=== PATIENT | male | born 1955 | race Caucasian/White ===

== ENCOUNTER 2016-12-22 23:35 | Emergency (ER) | payer MEDICARE, MEDICAID ==
[~2016-12-22] VITALS: Ht 170.2 cm; Wt 76.0 kg
[~2016-12-22 23:35] MED LIST: ATOR20TA65 PO; BACL-141 PO; BACL20TA PO; DEXA4TAB PO; FOLI-43 PO; LAM25 PO; LEVE750T4 PO; LISI10TA5 PO; NITR100C11 PO; PHEN200C5 PO; SANDOSTATIN SQ; SM CALCIUM PO
[2016-12-23] MEDS ORDERED: LEVETIRACETAM 500MG PREMIX 100 ML IV ONE
[2016-12-23 00:33] LABS: CHLORIDE 104 mEq/L (98-107); INDEX HEMOLYSI 1 (1-3); INDEX ICTERIC 1 (1-4); INDEX LIPEMIC 1 (1-3)
[2016-12-23 00:41] LABS: ALANINE AMINOTRANSFERASE 37 IU/L (13-61); ALBUMIN 3.2 g/dL (3.4-5.0); ANION GAP 10; CALCIUM 8.4 mg/dL (8.5-10.1); CARBON DIOXIDE 29 mEq/L (21-32); PHENYTOIN 14.2 ug/mL (10-20); UREA NITROGEN BLOOD 8 mg/dL (7-21); eGFR > 60 mL/min (>60)
[2016-12-23 01:02] LABS: BASOPHILS % 0.2 % (0.0-2.0); EOSINOPHILS % 1.5 % (0.0-5.0); HEMATOCRIT. 43.4 % (42.0-52.0); HEMOGLOBIN. 14.4 g/dL (14.0-18.0); LYMPHOCYTES % 29.5 % (20.0-50.0); MEAN CORPUSCULAR HEMOGLOBIN 31.4 pg (28.0-32.0); MEAN CORPUSCULAR HGB CONC 33.3 g/dL (31.0-37.0); MEAN CORPUSCULAR VOLUME 94.5 fL (80.0-94.0); MEAN PLATELET VOLUME 7.9 fl (7.4-10.4); MONOCYTES % 9.7 % (2.0-8.0); NEUTROPHILS % 59.1 % (40.0-76.0); PLATELET 241 x1000/uL (130-400); RED CELL DISTRIBUTION WIDTH 14.9 % (11.6-14.6); WHITE BLOOD COUNT 8.5 x1000/uL (4.5-11.0)
[2016-12-23 01:15] LABS: PROTHROMBIN TIME 10.6 sec
[2016-12-23 01:49] LABS: CLARITY URINE CLEAR (CLEAR); COLOR URINE YELLOW (YELLOW); GLUCOSE URINE NEGATIVE (NEGATIVE); KETONES URINE NEGATIVE (NEGATIVE); LEUKOCYTE ESTERASE URINE 1+ (NEGATIVE); NITRITE URINE NEGATIVE (NEGATIVE); OCCULT BLOOD URINE NEGATIVE (NEGATIVE); PROTEIN URINE NEGATIVE (NEGATIVE); SPECIFIC GRAVITY URINE 1.006 (1.005-1.030); UROBILINOGEN URINE 0.2 E.U./dL (0.2-1.0)
[2016-12-23 02:08] LABS: BACTERIA URINE NONE SEEN; RBC URINE 0-2 /hpf (0-2); SQUAMOUS EPITHELIAL CELL URINE FEW /lpf (RARE/1+)
[2016-12-23 03:09] VITALS: BP 127/83
== END 2016-12-23 03:19 | disposition home or self-care (01) ==
LOC: ER 23:35
DX: G40.909 Epilepsy, unspecified, not intractable, without status epilepticus (principal); Z88.0 Allergy status to penicillin; Z79.1 Long term (current) use of non-steroidal anti-inflammatories (NSAID); Z79.899 Other long term (current) drug therapy
CPT/HCPCS: 36415; 70450; 71010; 80053; 80185; 81001; 85025; 85610; 93005; 96365; 99285; J1953

== ENCOUNTER 2017-01-27 04:11 | Emergency (ER) | payer MEDICARE, MEDICAID ==
[~2017-01-27] VITALS: Ht 167.6 cm; Wt 73.0 kg
[2017-01-27] MEDS ORDERED: ONDANSETRON HCL 4MG/2ML VIAL IV ONE (04:30)
[2017-01-27] MEDS ORDERED: MORPHINE SULFATE 4 MG/ML CPJ (NOT FOR IM USE) IV ONE ×2 (04:30→06:15)
[2017-01-27 05:05] LABS: BASOPHILS % 0.3 % (0.0-2.0); EOSINOPHILS % 0.1 % (0.0-5.0); HEMATOCRIT. 45.1 % (42.0-52.0); HEMOGLOBIN. 15.4 g/dL (14.0-18.0); LYMPHOCYTES % 8.8 % (20.0-50.0); MEAN CORPUSCULAR HEMOGLOBIN 31.8 pg (28.0-32.0); MEAN CORPUSCULAR VOLUME 93.5 fL (80.0-94.0); MEAN PLATELET VOLUME 8.9 fl (7.4-10.4); MONOCYTES % 7.7 % (2.0-8.0); NEUTROPHILS % 83.1 % (40.0-76.0); PLATELET 190 x1000/uL (130-400); RED BLOOD CELL COUNT 4.83 mill/uL (4.7-6.1); RED CELL DISTRIBUTION WIDTH 14.2 % (11.6-14.6)
[2017-01-27 05:11] LABS: CARBON DIOXIDE 28 mEq/L (21-32); CHLORIDE 98 mEq/L (98-107)
[2017-01-27 05:13] LABS: INR 1.6; PROTHROMBIN TIME 16.9 sec
[2017-01-27 06:10] LABS: COLOR URINE YELLOW (YELLOW)
[2017-01-27 06:11] LABS: CLARITY URINE CLOUDY (CLEAR); GLUCOSE URINE NEGATIVE (NEGATIVE); KETONES URINE TRACE (NEGATIVE); LEUKOCYTE ESTERASE URINE TRACE (NEGATIVE); NITRITE URINE NEGATIVE (NEGATIVE); OCCULT BLOOD URINE TRACE (NEGATIVE); PH URINE 8.5 (4.5-8.0); PROTEIN URINE NEGATIVE (NEGATIVE); SPECIFIC GRAVITY URINE 1.013 (1.005-1.030); UROBILINOGEN URINE 0.2 E.U./dL (0.2-1.0)
[2017-01-27] MEDS ORDERED: CLONIDINE 0.2MG TABLET PO NR (07:15)
[2017-01-27 08:18] VITALS: BP 161/107
[2017-01-27] MEDS ORDERED: ONDANSETRON 4MG ODT PO ONE (09:00)
== END 2017-01-27 09:02 | disposition home or self-care (01) ==
LOC: ER 04:13
DX: R10.13 Epigastric pain (principal); R11.2 Nausea with vomiting, unspecified; D49.6 Neoplasm of unspecified behavior of brain; Z88.0 Allergy status to penicillin
CPT/HCPCS: 36415; 71010; 76705; 80053; 81001; 83690; 85025; 85610; 96374; 96375; 96376; 99285; J2270; J2405; Q0162

== ENCOUNTER 2017-02-06 12:28 | Inpatient (IN) | payer MEDICARE, MEDICAID ==
[~2017-02-06] VITALS: Ht 167.6 cm; Wt 83.9 kg
[2017-02-06] MEDS ORDERED: DEXA4TAB PO (16:00)
[2017-02-06] MEDS ORDERED: POTA20TA12 PO (16:00)
[2017-02-06 16:22] LABS: INR 1.1; PARTIAL THROMBOPLASTIN TIME 27.4 sec (24.0-34.0)
[2017-02-06 16:26] LABS: HEMATOCRIT 38.4 % (42.0-52.0); HEMOGLOBIN 12.8 g/dL (14.0-18.0); MEAN CORPUSCULAR HEMOGLOBIN 31.1 pg (28.0-32.0); MEAN CORPUSCULAR VOLUME 93.6 fL (80.0-94.0); PLATELET 428 x1000/uL (130-400); RED BLOOD CELL COUNT 4.11 mill/uL (4.7-6.1); RED CELL DISTRIBUTION WIDTH 14.4 % (11.6-14.6)
[2017-02-06 16:39] LABS: CARBON DIOXIDE 33 mEq/L (21-32); CHLORIDE 102 mEq/L (98-107)
[2017-02-06] MEDS ORDERED: SODIUM CHLORIDE 0.9% 1,000 ML IV SCH (18:23)
[2017-02-06] MEDS ORDERED: IPRATROPIUM/ALBUTEROL 0.5-3(2.5)MG/3ML NEB INH PRN (18:30)
[2017-02-06] MEDS ORDERED: MAGNESIUM/ALUMINUM HYDROXIDE/SIMETHICONE 30ML UDC PO PRN (18:30)
[2017-02-06] MEDS ORDERED: ACETAMINOPHEN 650MG SUPP PR PRN (18:30)
[2017-02-06] MEDS ORDERED: HYDROMORPHONE HCL/PF 2MG/ML CPJ IV PRN (18:30)
[2017-02-06] MEDS ORDERED: LORAZEPAM 2MG/ML CPJ IV PRN (18:30)
[2017-02-06] MEDS ORDERED: DIATR MEGLU/DIATRIZOATE SOLN 30ML PO NR ×2 (18:30→19:45)
[2017-02-06] MEDS ORDERED: CLONIDINE 0.1MG TABLET PO PRN (18:30)
[2017-02-06] MEDS ORDERED: GUAIFENESIN 200MG/10ML SUGAR FREE UDC PO PRN (18:30)
[2017-02-06] MEDS ORDERED: ONDANSETRON HCL 4MG/2ML VIAL IV PRN (18:30)
[2017-02-06] MEDS ORDERED: LORAZEPAM 0.5MG TABLET PO PRN (18:30)
[2017-02-06] MEDS ORDERED: DOCUSATE SODIUM 100MG CAPSULE PO PRN (18:30)
[2017-02-06] MEDS ORDERED: ACETAMINOPHEN 325MG TABLET PO PRN (18:30)
[2017-02-06] MEDS ORDERED: DIPHENHYDRAMINE 50MG/ML VIAL IV PRN (18:30)
[2017-02-06 18:40] LABS: CLARITY URINE TURBID (CLEAR); COLOR URINE YELLOW (YELLOW); KETONES URINE NEGATIVE (NEGATIVE); LEUKOCYTE ESTERASE URINE 1+ (NEGATIVE); NITRITE URINE POSITIVE (NEGATIVE); OCCULT BLOOD URINE NEGATIVE (NEGATIVE); PROTEIN URINE NEGATIVE (NEGATIVE); SPECIFIC GRAVITY URINE 1.012 (1.005-1.030); UROBILINOGEN URINE 0.2 E.U./dL (0.2-1.0)
[2017-02-06] MEDS ORDERED: DEXTROSE 50% WATER 50ML SYRINGE IV PRN (18:45)
[2017-02-06 19:39] LABS: *AMPHETAMINES SCREEN URINE NEGATIVE (NEGATIVE); *BARBITURATES SCREEN URINE NEGATIVE (NEGATIVE); *BENZODIAZEPINES SCREEN URINE NEGATIVE (NEGATIVE); *COCAINE SCREEN URINE NEGATIVE (NEGATIVE); CANNABINOID URINE SCREEN NEGATIVE (NEGATIVE); METHADONE URINE SCREEN NEGATIVE (NEGATIVE); OPIATES URINE SCREEN NEGATIVE (NEGATIVE); PHENCYCLIDINE URINE SCREEN NEGATIVE (NEGATIVE)
[2017-02-06] MEDS: PHENYTOIN SODIUM EXTENDED 100MG CAPSULE PO SCH (20:57)
[2017-02-06] MEDS: LEVETIRACETAM 500MG TABLET PO SCH (20:57)
[2017-02-06] MEDS: LAMOTRIGINE 25MG TABLET PO SCH (20:58)
[2017-02-06] MEDS ORDERED: BLOOD SUGAR DIAGNOSTIC STRIP TEST SCH (21:00)
[2017-02-06] MEDS ORDERED: LEVETIRACETAM 250MG TABLET PO SCH (21:00)
[2017-02-06] MEDS: BLOOD SUGAR DIAGNOSTIC STRIP TEST SCH (21:00)
[2017-02-07] MEDS: SODIUM CHLORIDE 0.9% 1,000 ML IV SCH (00:53)
[2017-02-07] MEDS: BLOOD SUGAR DIAGNOSTIC STRIP TEST SCH ×5 (03:38→21:00)
[2017-02-07 06:00] LABS: AMYLASE 66 IU/L (25-115); CARBON DIOXIDE 29 mEq/L (21-32); CHLORIDE 101 mEq/L (98-107); HDL CHOLESTEROL 44 mg/dL (40-59); LDL CHOLESTEROL 46 mg/dL (5-100); PHOSPHORUS 3.6 mg/dL (2.5-4.9)
[2017-02-07] MEDS: INSULIN LISPRO 100 UNITS/ML SUBCUT SCH ×5 (06:00→21:00)
[2017-02-07 06:28] LABS: BASOPHILS % 0.3 % (0.0-2.0); EOSINOPHILS % 2.1 % (0.0-5.0); HEMATOCRIT. 39.9 % (42.0-52.0); HEMOGLOBIN. 13.4 g/dL (14.0-18.0); LYMPHOCYTES % 18.1 % (20.0-50.0); MEAN CORPUSCULAR HEMOGLOBIN 31.3 pg (28.0-32.0); MEAN CORPUSCULAR VOLUME 92.8 fL (80.0-94.0); MEAN PLATELET VOLUME 7.1 fl (7.4-10.4); MONOCYTES % 6.8 % (2.0-8.0); NEUTROPHILS % 72.7 % (40.0-76.0); PLATELET 433 x1000/uL (130-400)
[2017-02-07] MEDS: PHENYTOIN SODIUM EXTENDED 100MG CAPSULE PO SCH ×2 (11:07→21:42)
[2017-02-07] MEDS: BACLOFEN 10MG TABLET PO SCH (11:08)
[2017-02-07] MEDS: LAMOTRIGINE 25MG TABLET PO SCH ×2 (11:08→21:42)
[2017-02-07] MEDS: ATORVASTATIN CALCIUM 20MG TABLET PO SCH (11:08)
[2017-02-07] MEDS: LEVETIRACETAM 500MG TABLET PO SCH ×2 (11:08→21:42)
[2017-02-07] MEDS: FOLIC ACID 1MG TABLET PO SCH (11:08)
[2017-02-07] MEDS: CALCIUM CARBONATE/VITAMIN D3 500MG TABLET PO SCH ×2 (11:09→17:30)
[2017-02-07] MEDS ORDERED: IOHEXOL-300 100 ML BOTTLE ONE (13:17)
[2017-02-07] MEDS ORDERED: SODIUM CHLORIDE 0.9% 10ML VIAL ONE (13:17)
[2017-02-07] MEDS ORDERED: LEVOFLOXACIN 750MG PREMIX 150 ML IV SCH (14:00)
[2017-02-07] MEDS: LEVOFLOXACIN 500MG PREMIX 100 ML IV SCH (17:33)
[2017-02-07] MEDS ORDERED: METRONIDAZOLE 500 MG PREMIX 100 ML IV SCH (18:00)
[2017-02-07] MEDS: METRONIDAZOLE 500 MG PREMIX 100 ML IV SCH (21:42)
[2017-02-08] MEDS: SODIUM CHLORIDE 0.9% 1,000 ML IV SCH (00:26)
[2017-02-08 06:47] LABS: CARBON DIOXIDE 30 mEq/L (21-32); CHLORIDE 102 mEq/L (98-107)
[2017-02-08] MEDS: BLOOD SUGAR DIAGNOSTIC STRIP TEST SCH ×4 (06:59→21:24)
[2017-02-08] MEDS: METRONIDAZOLE 500 MG PREMIX 100 ML IV SCH ×3 (06:59→22:35)
[2017-02-08] MEDS: INSULIN LISPRO 100 UNITS/ML SUBCUT SCH ×4 (07:03→21:00)
[2017-02-08 07:29] LABS: BASOPHILS % 0.3 % (0.0-2.0); EOSINOPHILS % 2.3 % (0.0-5.0); HEMATOCRIT. 37.9 % (42.0-52.0); HEMOGLOBIN. 12.8 g/dL (14.0-18.0); LYMPHOCYTES % 15.4 % (20.0-50.0); MEAN CORPUSCULAR HEMOGLOBIN 31.2 pg (28.0-32.0); MEAN CORPUSCULAR VOLUME 92.7 fL (80.0-94.0); MEAN PLATELET VOLUME 6.7 fl (7.4-10.4); MONOCYTES % 8.3 % (2.0-8.0); NEUTROPHILS % 73.7 % (40.0-76.0); PLATELET 463 x1000/uL (130-400); RED BLOOD CELL COUNT 4.09 mill/uL (4.7-6.1)
[2017-02-08] MEDS: LEVETIRACETAM 500MG TABLET PO SCH ×2 (10:07→21:03)
[2017-02-08] MEDS: CALCIUM CARBONATE/VITAMIN D3 500MG TABLET PO SCH ×2 (10:07→17:28)
[2017-02-08] MEDS: PHENYTOIN SODIUM EXTENDED 100MG CAPSULE PO SCH ×2 (10:07→21:03)
[2017-02-08] MEDS: FOLIC ACID 1MG TABLET PO SCH (10:07)
[2017-02-08] MEDS: ATORVASTATIN CALCIUM 20MG TABLET PO SCH (10:07)
[2017-02-08] MEDS: BACLOFEN 10MG TABLET PO SCH (10:07)
[2017-02-08] MEDS: LAMOTRIGINE 25MG TABLET PO SCH ×2 (11:06→21:03)
[2017-02-08] MEDS: LEVOFLOXACIN 500MG PREMIX 100 ML IV SCH (17:28)
[2017-02-09] MEDS: SODIUM CHLORIDE 0.9% 1,000 ML IV SCH (06:28)
[2017-02-09] MEDS: METRONIDAZOLE 500 MG PREMIX 100 ML IV SCH (06:28)
[2017-02-09] MEDS: BLOOD SUGAR DIAGNOSTIC STRIP TEST SCH ×2 (06:35→12:38)
[2017-02-09] MEDS: INSULIN LISPRO 100 UNITS/ML SUBCUT SCH ×2 (06:35→12:20)
[2017-02-09 07:14] LABS: BASOPHILS % 0.2 % (0.0-2.0); EOSINOPHILS % 2.3 % (0.0-5.0); HEMATOCRIT. 39.3 % (42.0-52.0); HEMOGLOBIN. 13.2 g/dL (14.0-18.0); LYMPHOCYTES % 17.3 % (20.0-50.0); MEAN CORPUSCULAR HEMOGLOBIN 31.2 pg (28.0-32.0); MEAN PLATELET VOLUME 6.7 fl (7.4-10.4); NEUTROPHILS % 71.2 % (40.0-76.0); PLATELET 472 x1000/uL (130-400); RED BLOOD CELL COUNT 4.23 mill/uL (4.7-6.1)
[2017-02-09 07:25] LABS: CARBON DIOXIDE 29 mEq/L (21-32); CHLORIDE 104 mEq/L (98-107)
[2017-02-09] MEDS: LAMOTRIGINE 25MG TABLET PO SCH (09:14)
[2017-02-09] MEDS: FOLIC ACID 1MG TABLET PO SCH (09:14)
[2017-02-09] MEDS: PHENYTOIN SODIUM EXTENDED 100MG CAPSULE PO SCH (09:14)
[2017-02-09] MEDS: LEVETIRACETAM 500MG TABLET PO SCH (09:14)
[2017-02-09] MEDS: CALCIUM CARBONATE/VITAMIN D3 500MG TABLET PO SCH (09:14)
[2017-02-09] MEDS: BACLOFEN 10MG TABLET PO SCH (09:14)
[2017-02-09] MEDS: ATORVASTATIN CALCIUM 20MG TABLET PO SCH (09:14)
[2017-02-09 16:00] VITALS: BP 118/66
== END 2017-02-09 13:34 | disposition home or self-care (01) | DRG 445 ==
LOC: 6EST 12:28
PROVIDERS: ADMIT Internal Medicine Nephrology; ATTEND Internal Medicine Nephrology
DX: K81.0 Acute cholecystitis (principal); N39.0 Urinary tract infection, site not specified; G82.20 Paraplegia, unspecified; E44.0 Moderate protein-calorie malnutrition; D64.9 Anemia, unspecified; B96.89 Other specified bacterial agents as the cause of diseases classified elsewhere; R74.0 Nonspecific elevation of levels of transaminase and lactic acid dehydrogenase [LDH]; E78.5 Hyperlipidemia, unspecified; G40.909 Epilepsy, unspecified, not intractable, without status epilepticus; I10 Essential (primary) hypertension; Z79.899 Other long term (current) drug therapy; Z88.0 Allergy status to penicillin; Z92.3 Personal history of irradiation; Z86.018 Personal history of other benign neoplasm; Z68.29 Body mass index [BMI] 29.0-29.9, adult
CPT/HCPCS: 36415; 74178; 78227; 80048; 80061; 80076; 80305; 81001; 82150; 82962; 83036; 83690; 83735; 84100; 85025; 85027; 85610; 85730; 87077; 87086; 87186; 93970; 97163; A4216; A9537; C1893; J1956; J3490; J7030; Q9963; Q9967

== ENCOUNTER → 2017-04-12 | Outpatient (CLI) | payer MEDICARE, MEDICAID ==
[~2017-04-12] MED LIST changes: +GADOBENATE DIMEGLUMINE 529 MG/ML 10ML IV ONE; +POTA20TA12 PO
== END | disposition home or self-care (01) ==
LOC: MRI 09:36
PROVIDERS: ATTEND Neurological Surgery
DX: D49.6 Neoplasm of unspecified behavior of brain (principal); R90.82 White matter disease, unspecified
CPT/HCPCS: 70553; A9577

== ENCOUNTER → 2017-08-01 | Outpatient (CLI) | payer MEDICARE, MEDICAID ==
[~2017-08-01] MED LIST changes: -GADOBENATE DIMEGLUMINE 529 MG/ML 10ML IV ONE
== END | disposition home or self-care (01) ==
LOC: RAD 10:13
PROVIDERS: ATTEND Internal Medicine Nephrology
DX: I70.0 Atherosclerosis of aorta (principal); I77.810 Thoracic aortic ectasia; M47.894 Other spondylosis, thoracic region
CPT/HCPCS: 71010

== ENCOUNTER → 2018-08-07 | Outpatient (CLI) | payer MEDICARE, MEDICAID | END | disposition home or self-care (01) | LOC: RAD 11:23 | PROVIDERS: ATTEND Internal Medicine Nephrology | DX: R06.02 Shortness of breath (principal); M47.814 Spondylosis without myelopathy or radiculopathy, thoracic region | CPT/HCPCS: 71046 ==

== ENCOUNTER → 2018-12-15 | Outpatient (CLI) | payer MEDICARE, MEDICAID | END | disposition home or self-care (01) | LOC: RAD 11:13 | PROVIDERS: ATTEND Internal Medicine Nephrology | DX: Z01.818 Encounter for other preprocedural examination (principal) | CPT/HCPCS: 71045 ==

== ENCOUNTER 2019-08-13 15:45 | Emergency (ER) | payer MEDICARE, MEDICAID ==
[~2019-08-13] VITALS: Ht 172.7 cm; Wt 90.0 kg
[2019-08-13] MEDS ORDERED: ONDANSETRON HCL 4MG/2ML INJ IV ONE (18:00)
[2019-08-13] MEDS ORDERED: SODIUM CHLORIDE 0.9% 1,000 ML IV ONE (18:00)
[2019-08-13 19:06] LABS: BASOPHILS % 0.2 % (0.0-2.0); EOSINOPHILS % 0.1 % (0.0-5.0); HEMATOCRIT. 40.6 % (42.0-52.0); HEMOGLOBIN. 13.6 g/dL (14.0-18.0); LYMPHOCYTES % 23.3 % (20.0-50.0); MEAN CORPUSCULAR HEMOGLOBIN 34.7 pg (28.0-32.0); MEAN CORPUSCULAR VOLUME 103.6 fL (80.0-94.0); MEAN PLATELET VOLUME 6.6 fl (7.4-10.4); MONOCYTES % 10.5 % (2.0-8.0); NEUTROPHILS % 65.9 % (40.0-76.0); PLATELET 194 x1000/uL (130-400); RED BLOOD CELL COUNT 3.92 mill/uL (4.7-6.1); RED CELL DISTRIBUTION WIDTH 20.7 % (11.6-14.6)
[2019-08-13 19:10] LABS: CHLORIDE 108 mEq/L (98-107)
[2019-08-13 19:13] LABS: ETHANOL BLOOD < 10 mg/dL
[2019-08-13 19:19] LABS: PROTHROMBIN TIME 10.1 sec (9.6-11.0)
[2019-08-13 19:35] LABS: CLARITY URINE CLEAR (CLEAR); COLOR URINE YELLOW (YELLOW); KETONES URINE TRACE (NEGATIVE); LEUKOCYTE ESTERASE URINE 2+ (NEGATIVE); NITRITE URINE NEGATIVE (NEGATIVE); OCCULT BLOOD URINE NEGATIVE (NEGATIVE); PH URINE >=9.0 (4.5-8.0); PROTEIN URINE NEGATIVE (NEGATIVE); SPECIFIC GRAVITY URINE 1.007 (1.005-1.030); UROBILINOGEN URINE 0.2 E.U./dL (0.2-1.0)
[2019-08-13 19:47] LABS: *AMPHETAMINES SCREEN URINE NEGATIVE (NEGATIVE); *BARBITURATES SCREEN URINE NEGATIVE (NEGATIVE); *BENZODIAZEPINES SCREEN URINE NEGATIVE (NEGATIVE); CANNABINOID URINE SCREEN NEGATIVE (NEGATIVE); OPIATES URINE SCREEN PRESUMTIVE POSITIVE (NEGATIVE); PHENCYCLIDINE URINE SCREEN NEGATIVE (NEGATIVE)
[2019-08-13 19:48] LABS: *COCAINE SCREEN URINE NEGATIVE (NEGATIVE); METHADONE URINE SCREEN NEGATIVE (NEGATIVE)
[2019-08-13] MEDS ORDERED: CEFTRIAXONE 1 G PREMIX 50 ML IV ONE (21:30)
[2019-08-13] MEDS ORDERED: KETOROLAC 15MG/ML VIAL IV ONE (21:30)
[2019-08-13 21:54] VITALS: BP 108/79
== END 2019-08-13 22:33 | disposition home or self-care (01) ==
LOC: ER 15:45 → CANBEDREQ 23:23
DX: N39.0 Urinary tract infection, site not specified (principal); G93.40 Encephalopathy, unspecified; R51 Headache; R56.9 Unspecified convulsions; Z88.0 Allergy status to penicillin; Z85.841 Personal history of malignant neoplasm of brain
CPT/HCPCS: 36415; 70450; 71045; 80053; 80305; 80320; 81003; 83880; 84484; 85025; 85610; 96365; 96375; 99284; J0696; J1885; J2405; J7030; G0480